=== PATIENT | male | born 1960 | race Two or more races ===

== ENCOUNTER 2019-11-24 05:23 | Day surgery (SDC) | payer OTHER ==
[2019-11-24] VITALS (14 sets, daily range): BP systolic 119–150; BP diastolic 79–95
[~2019-11-24] VITALS: Ht 172.7 cm; Wt 80.7 kg
[2019-11-24] MEDS ORDERED: Sterile Water Irrig 1000ml IRRIG ONE (05:24)
[2019-11-24] MEDS ORDERED: celeBREX 200mg Cap **SURGERY PATIENTS ONLY ORAL ONE (06:00)
[2019-11-24] MEDS ORDERED: ceFAZolin 1gm IVPB IVPB ONE ×2 (06:00)
[2019-11-24] MEDS ORDERED: oxyCONTIN 20mg tab ORAL ONE (06:00)
[2019-11-24] MEDS ORDERED: LR 1000ml 1,000 ML IVLG SCH (07:12)
[2019-11-24] MEDS ORDERED: Sodium Chloride 10ml vial INJ ONE (07:14)
[2019-11-24] MEDS ORDERED: Dexamethasone 4mg/ml vial ONE (07:14)
[2019-11-24] MEDS ORDERED: Kenalog-40 1ml Vial ONE (07:14)
[2019-11-24] MEDS ORDERED: Lidocaine 1% MPF 10mg/ml 5ml ONE (07:14)
[2019-11-24] MEDS ORDERED: Ketorolac 30mg Inj ONE (07:14)
[2019-11-24] MEDS ORDERED: Lidocaine 1% 10mg/ml/Epi 0.005mg/ml 30ml vial INJ ONE (07:14)
[2019-11-24] MEDS ORDERED: Propofol 200mg/20ml IV ONE (07:14)
[2019-11-24] MEDS ORDERED: Bupivacaine 0.25% Inj 30ml INJ ONE (07:14)
[2019-11-24] MEDS ORDERED: Duramorph PF 5mg/10ml amp ONE (07:14)
--- NOTE | 2019-11-24 07:14 | Anethesia Preoperative Eval ---
Anesthesia Pre-op PMH/ROS General Date of Evaluation: Nov 24, 2019 Time of Evaluation: 07:19 Anesthesiologist: Alayna ASA Score: ASA 2 Mallampati Score Class I : Soft palate, uvula, fauces, pillars visible Class II: Soft palate, uvula, fauces visible Class III: Soft palate, base of uvula visible Class IV: Only hard plate visible Mallampati Classification: Class II Surgeon: Alvarado Diagnosis: L Knee Pain Surgical Procedure: L Knee Arthroscopy Anesthesia History: none Family History: no anesthesia problems Allergies: Coded Allergies: No Known Allergies (Unverified , 11/22/19) Medications: see eMAR Patient NPO?: Yes Past Medical History PSxH Narrative: Back SX Anesthesia Pre-op Phys. Exam Physician Exam Last Vital Signs Date Time Temp Pulse Resp B/P (MAP) Pulse Ox O2 Delivery O2 Flow Rate FiO2 11/24/19 06:02 Room Air 11/24/19 05:53 97.4 87 18 134/79 97 Constitutional: NAD Neurologic: CN 2-12 intact Cardiovascular: RRR Respiratory: CTA Gastrointestinal: S/NT/ND Airway Exam Mallampati Score: Class II MO: full ROM: full Teeth: intact Anesthesia Pre-op A/P Risk Assessment & Plan Assessment: ASA 2 Plan: GA, SED Status Change Before Surgery: No Pre-Antibiotics Dru Gram Ancef IV Given Within 1 Hr of Incision: Yes Time Given: 07:41 Chad Catalan MD Nov 24, 2019 07:14
[2019-11-24] MEDS ORDERED: HYDROcodone/Acetamin 5/325 tab ORAL PRN ×2 (07:15→07:45)
[2019-11-24] MEDS ORDERED: Midazolam 2mg/2ml Inj ONE (07:15)
[2019-11-24] MEDS ORDERED: Ketorolac 30mg Inj IV PRN ×2 (07:15)
[2019-11-24] MEDS ORDERED: Atropine Sulfate 0.4mg/ml inj IVP PRN (07:15)
[2019-11-24] MEDS ORDERED: LORazepam Inj 2mg/ml 1ml IV PRN (07:15)
[2019-11-24] MEDS ORDERED: fentaNYL 100 mcg/2 mL IV PRN (07:15)
[2019-11-24] MEDS ORDERED: HYDROcodone/Acetamin 7.5/325 tab ORAL PRN (07:15)
[2019-11-24] MEDS ORDERED: fentaNYL 100 mcg/2 mL IV ONE (07:15)
[2019-11-24] MEDS ORDERED: Hydromorphone 0.5mg/0.5ml inj IVP PRN (07:15)
[2019-11-24] MEDS ORDERED: Meperidine 25mg/0.5ml Inj (FOR RIGORS ONLY) IV PRN (07:15)
[2019-11-24] MEDS ORDERED: Labetalol 5mg/ml 20ml vial IV PRN (07:15)
[2019-11-24] MEDS ORDERED: oxyCODONE HCL/Acetaminophen 5/325mg ORAL PRN (07:15)
[2019-11-24] MEDS ORDERED: Midazolam 2mg/2ml Inj IVP PRN (07:15)
[2019-11-24] MEDS ORDERED: DiphenhydrAMINE 50mg/ml Inj IVP PRN (07:15)
[2019-11-24] MEDS ORDERED: Metoclopramide 10mg/2ml Inj IVP PRN (07:15)
[2019-11-24] MEDS ORDERED: Ketamine 500mg/10ml vial ONE (07:20)
--- NOTE | 2019-11-24 07:24 | Immediate Post-Op Evaluation ---
Immediate Post-Op Evalulation Immediate Post-Op Evalulation Procedure: L Knee Arthroscopy Date of Evaluation: Nov 24, 2019 Time of Evaluation: 08:44 IV Fluids: 900 LR Blood Products: 0 Estimated Blood Loss: 10 Urinary Output: 0 Blood Pressure Systolic: 136 Blood Pressure Diastolic: 87 Pulse Rate: 79 Respiratory Rate: 16 O2 Sat by Pulse Oximetry: 96 Temperature (Fahrenheit): 97 Pain Score (1-10): 2 Nausea: No Vomiting: No Complications 0 Patient Status: awake, reacts, patent, none Hydration Status: adequate Dru Gram Ancef IV Given Within 1 Hr of Incision: Yes Time Given: 07:41 Chad Catalan MD Nov 24, 2019 07:24
--- NOTE | 2019-11-24 07:25 | 48 Hour Post Anesthesia Eval ---
Post Anesthesia Evaluation Procedure: L Knee Arthroscopy Date of Evaluation: Nov 24, 2019 Time of Evaluation: 10:52 Blood Pressure Systolic: 128 0: 79 Pulse Rate: 74 Respiratory Rate: 18 Temperature (Fahrenheit): 97.4 O2 Sat by Pulse Oximetry: 97 Airway: patent Nausea: No Vomiting: No Pain Intensity: 2 Hydration Status: adequate Cardiopulmonary Status: Stable Mental Status/LOC: patient returned to baseline Follow-up Care/Observations: 0 Post-Anesthesia Complications: 0 Follow-up care needed: ready to discharge Chad Catalan MD Nov 24, 2019 07:25
--- NOTE | 2019-11-24 07:39 | Pre-Procedure Note/Attestation ---
Pre-Procedure Note/Attestation Complete Prior to Procedure Planned Procedure: left Procedure Narrative: knee diagnostic arthroscopy, possible synovectomy, possible chondroplasty Indications for Procedure Pre-Operative Diagnosis: left knee acl sprain Attestation I attest that I discussed the nature of the procedure; its benefits; risks and complications; and alternatives (and the risks and benefits of such alternatives ), prior to the procedure, with the patient (or the patient's legal group sales representative). I attest that, if there was a reasonable possibility of needing a blood transfusion, the patient (or the patient's legal group sales representative) was given the [facility] standardized written summary, pursuant to the [place] Blood Safety Act ([place] Health and Safety Code # 1645, as amended). I attest that I re-evaluated the patient just prior to the surgery and that there has been no change in the patient's H&P, except as documented below: Jaison Childers MD Nov 24, 2019 07:39
--- NOTE | 2019-11-24 07:39 | Operative Note - PDOC ---
Operative Note Operative Note Pre-op Diagnosis: left knee acl sprain Procedure: see op report Post-op Diagnosis: same as pre-op plus Operative Findings: consistent w/pre-op dx studies Anesthesia: MAC Specimen: none Complications: none Condition: stable Estimated Blood Loss: none Implant(s) used?: No Jaison Childers MD Nov 24, 2019 07:39
[2019-11-24] MEDS ORDERED: D5 1/2NS 1,000 ML IV SCH (07:45)
[2019-11-24] MEDS ORDERED: Tylenol #3 tab (300mg/30mg) ORAL PRN (07:45)
[2019-11-24] MEDS ORDERED: HYDROmorphone 1mg/ml Carpuject SUBQ PRN (07:45)
[2019-11-24] MEDS ORDERED: NS Irrig 4000ml IRRIG ONE ×2 (07:54→08:06)
[2019-11-24] MEDS ORDERED: Acetaminophen (Non formulary) 100 ML IV ONE (08:00)
[2019-11-24] MEDS ORDERED: Duramorph PF 5mg/10ml amp IT ONE (08:10)
--- NOTE | 2019-11-24 19:14 | Operative Note - Dictated ---
DATE OF OPERATION: 11/24/2019 PREOPERATIVE DIAGNOSIS: Left knee ACL sprain. POSTOPERATIVE DIAGNOSES: 1. Left knee partial ACL sprain with hypertrophic ligamentum mucosum/fat pad. 2. Medial plica. 3. Grade 1 chondral damage, medial femoral condyle. PROCEDURES: 1. Left knee diagnostic arthroscopy. 2. Synovectomy of medial, lateral, and patellofemoral compartment. SURGEON: Jaison Childers MD. ANESTHESIA: MAC. INDICATION FOR PROCEDURE: The patient is a pleasant gentleman, who has had progressive left knee pain. The patient failed conservative treatment and elected to undergo left knee diagnostic arthroscopy, possible ACL reconstruction/meniscectomy, chondroplasty, synovectomy. Based on the intraoperative findings and integrity of the ACL, intraoperative decisions will be made. The patient was consented to proceed with the appropriate treatment plan based on the intraoperative findings. Risks, limitations, expectations, and complications of procedure were discussed in detail. All questions were addressed. DESCRIPTION OF PROCEDURE: After informed consent was obtained, the patient was brought to the operating room. The patient was placed under monitored anesthesia control. Left leg was prepped and draped in a sterile manner. Time-out was performed. Inferolateral stab incision was then made. Trocar was introduced into the knee joint. Systematic tour of the knee was performed. There was hypertrophic fat pad and synovial tissue in the patellofemoral compartment making visualization somewhat difficult. Medial gutter was entered; free of meniscal or chondral damage. Medial compartment was entered. There was hypertrophic synovial tissue and fat pad anteriorly. Medial working portal was established. Synovectomy of the anterior portion of medial compartment was performed. Once this was done, medial compartment was better visualized. Meniscus probed and noted to be intact. No chondral damage in the medial compartment. We did synovectomy and excision of the fat pad extending to the intercondylar notch and lateral compartment. The ACL had a longitudinal tear on the tibial insertion, although the ACL was slightly , it was in continuity. Therefore, formal takedown and reconstruction was not indicated given the patient's age and the remaining integrity of the ACL. Lateral compartment was entered; free of meniscal or chondral damage. The camera was then switched to the medial working or viewing portal and synovectomy and excision of the fat pad was completed into the lateral gutter. Camera was then placed in the anterolateral compartment. Camera was repositioned in the patellofemoral compartment. Excision of the fat pad and medial plica was completed. Once this was done, an area of grade 1 chondral damage of medial femoral condyle was identified. At this point, the instruments were removed. Portal sites were closed with 3-0 Monocryl sutures. ESTIMATED BLOOD LOSS: None. COMPLICATIONS: None. SPECIMENS: None. IMPLANTS: None. Jaison Childers M.D. DR: LEIGHANN JOB#: [id number] CC:
== END 2019-11-24 10:05 | disposition home or self-care (01) ==
LOC: SUR 05:23
DX: S83.512A Sprain of anterior cruciate ligament of left knee, initial encounter (principal); M67.52 Plica syndrome, left knee; M79.4 Hypertrophy of (infrapatellar) fat pad; X58.XXXA Exposure to other specified factors, initial encounter; Y92.9 Unspecified place or not applicable
CPT/HCPCS: 29876; J0131; J0690; J1100; J1885; J2250; J2405; J2704; J3301; J3490; 94003; 94150